=== PATIENT | female | born 1985 | race Caucasian/White ===

== ENCOUNTER → 2023-07-18 | Outpatient (CLI) | payer BC ==
--- NOTE | 2023-07-20 16:18 | MM ---
Reason for Exam: Screening (asymptomatic). Baseline mammogram. Patient History: Menarche at age 12. 2009, Excisional Biopsy on the Right side. 2005, Bilateral Implants. Last menstrual period: 06/20/2023 Risk Values: Jo Ann 5 year model risk: 0.6%. NCI Lifetime model risk: 8.2%. Prior Study Comparison: Patient's first Mammogram. No prior studies available for comparison. Tissue Density: The breast tissue is heterogeneously dense. This may lower the sensitivity of mammography. Findings: Analyzed By CAD. No significant mass, suspicious microcalcification, or other discrete abnormality seen in either breast. Overall Assessment: Negative, BI-RAD 1 Management: Screening Mammogram of both breasts in 1 year. . Patient should continue monthly self-breast exams. A clinical breast exam by your physician is recommended on an annual basis. This exam should not preclude additional follow-up of suspicious palpable abnormalities. Note on Jo Ann scores and lifetime risk: 1. A Jo Ann score greater than 3% is considered moderate risk. If this is the case, consider specialist referral to assess eligibility for a risk reducing agent. 2. If overall lifetime risk for the development of breast cancer is 20% or higher, the patient may qualify for future screening with alternating mammogram and breast MRI. Electronically signed and approved by: Rashad Foote DO
== END | disposition home or self-care (01) ==
LOC: RADMAMWWP 10:54
PROVIDERS: ATTEND Family Medicine
DX: Z12.31 Encounter for screening mammogram for malignant neoplasm of breast (principal)
CPT/HCPCS: 77063; 77067

== ENCOUNTER → 2024-04-23 | Outpatient (CLI) | payer BC ==
--- NOTE | 2024-04-23 14:30 | US ---
EXAMINATION TYPE: US pelvic complete DATE OF EXAM: 04/23/2024 COMPARISON: NONE CLINICAL INDICATION: Female, 39 years old with history of N92.6 IRREGULAR MENSTRUATION; Bleeding afte r intercourse x 1 week TECHNIQUE: Transabdominal sonographic images of the pelvis were acquired. Date of LMP: 03/25/2024 EXAM MEASUREMENTS: Uterus: 7.2 x 3.5 x 5.3 cm Endometrial Stripe: 0.4 cm Right Ovary: 2.1 x 1.3 x 2.9 cm Left Ovary: 3.3 x 1.7 x 2.2 cm 1. Uterus: wnl 2. Endometrium: appears wnl 3. Right Ovary: wnl 4. Left Ovary: wnl 5. Bilateral Adnexa: wnl 6. Posterior cul-de-sac: wnl IMPRESSION: 1. Normal uterus and endometrial stripe. 2. No adnexal masses. 3. No free fluid in the cul-de-sac
== END | disposition home or self-care (01) ==
LOC: RADUSWWP 09:45
PROVIDERS: ATTEND Family Medicine
DX: N92.6 Irregular menstruation, unspecified (principal)
CPT/HCPCS: 76856